=== PATIENT | male | born 1935 | race Caucasian/White ===

== ENCOUNTER → 2018-03-18 | Outpatient (CLI) | payer OTHER ==
[~2018-03-18] MED LIST: ALLO100 PO; ASPI325 PO; DIOVAN PO; EFFIENT PO; EZET10-10 PO; FAMO10 PO; HCT PO; LEVSOD75 PO; METF500C PO; NEBI5 PO; SILD50TA PO; SIMV40 PO; VALS80 PO; [UNRECOGNIZED DRUG - OTHER]
== END | disposition home or self-care (01) ==
LOC: PLD 13:49 → LAB SHORT 13:49
DX: C44.311 Basal cell carcinoma of skin of nose (principal)
CPT/HCPCS: 88305

== ENCOUNTER → 2018-08-03 | Outpatient (CLI) | payer OTHER | END | disposition home or self-care (01) | LOC: PLD 08:36 → LAB SHORT 08:36 | DX: D48.5 Neoplasm of uncertain behavior of skin (principal) | CPT/HCPCS: 88305 ==

== ENCOUNTER 2019-04-23 06:20 | Emergency (ER) | payer OTHER ==
[~2019-04-23] VITALS: Ht 175.3 cm; Wt 97.5 kg
[2019-04-23 07:02] LABS: Hematocrit 36.9 % (37.0-53.0); Hemoglobin 12.2 g/dL (13.5-17.5); Mean Corpuscular HGB 31.1 pg (26.0-34.0); Mean Corpuscular HGB Conc 33.1 g/dL (31.5-36.5); Mean Corpuscular Volume 94 fL (80-100); Mean Platelet Volume 9.7 fL (9.1-12.4); Platelet Count 102 K/mm3 (150-400); RDW Coefficient Variation 14.5 % (11.7-14.2); RDW Standard Deviation 49.8 fL (35.1-46.3); Red Blood Cell Count 3.92 M/mm3 (4.30-5.90); White Blood Cell Count 17.49 K/mm3 (4.00-11.30)
[2019-04-23 07:20] LABS: Alanine Aminotransfer (ALT/SGP 20 U/L (12-78); Albumin, Blood 3.6 g/dL (3.4-5.0); Albumin/Globulin Ratio 1.3 (0.8-1.8); Alk Phos 139 U/L (50-136); Anion Gap 9 mmol/L (6-16); Aspartate Aminotrans (AST/SGOT 13 U/L (12-37); Bilirubin, Total 0.3 mg/dL (0.1-1.0); Blood Urea Nitrogen 34 mg/dL (8-24); Bun/Creatinine Ratio 15.9 (12.0-20.0); CO2, Blood 24 mmol/L (21-32); Calcium, Blood 8.3 mg/dL (8.5-10.1); Chloride, Blood 112 mmol/L (98-108); Creatinine, Blood 2.14 mg/dL (0.60-1.20); Globulin, Blood 2.7 g/dL (2.2-4.0); Glomerular Filtration Rate 31 (60-); Glucose, Blood 122 mg/dL (70-99); Potassium, Blood 4.7 mmol/L (3.5-5.5); Sodium, Blood 145 mmol/L (136-145); Total Protein, Blood 6.3 g/dL (6.4-8.2); Troponin I <0.015 ng/mL (0.000-0.040)
[2019-04-23 07:55] LABS: BASOPHILS PERCENT MAN 0 % (0-2); EOSINOPHILS ABSOLUTE MAN 0.17 K/mm3 (0.00-0.68); EOSINOPHILS PERCENT MAN 1 % (0-6); LYMPHOCYTES ABSOLUTE MAN 14.69 K/mm3 (0.84-5.20); LYMPHOCYTES PERCENT MAN 84 % (21-46); MONOCYTES PERCENT MAN 0 % (4-13); NEUTROPHILS ABSOLUTE MAN 2.62 K/mm3 (1.96-9.15); SEG NEUTROPHILS PERCENT MAN 15 % (41-73); TOTAL CELLS COUNTED 100
[2019-04-23] MEDS ORDERED: Amaryl1 MG PO (08:01)
[2019-04-23] MEDS ORDERED: Synthroid88 MCG PO (08:01)
== END 2019-04-23 10:02 | disposition home or self-care (01) ==
LOC: ER 06:20
PROVIDERS: Emergency Medicine
DX: R07.9 Chest pain, unspecified (principal); R10.13 Epigastric pain; E11.22 Type 2 diabetes mellitus with diabetic chronic kidney disease; I12.9 Hypertensive chronic kidney disease with stage 1 through stage 4 chronic kidney disease, or unspecified chronic kidney disease; N18.9 Chronic kidney disease, unspecified; E78.00 Pure hypercholesterolemia, unspecified; M10.9 Gout, unspecified; Z88.8 Allergy status to other drugs, medicaments and biological substances; Z79.82 Long term (current) use of aspirin; Z79.899 Other long term (current) drug therapy
CPT/HCPCS: 71046; 80053; 84484; 85025; 93005; 93010; 99284-25

== ENCOUNTER 2022-08-13 15:35 | Emergency (ER) | payer OTHER ==
[~2022-08-13] VITALS: Ht 177.8 cm; Wt 88.9 kg
[~2022-08-13 15:35] MED LIST changes: +Amaryl1 MG PO; +Synthroid88 MCG PO
[2022-08-13 17:35] LABS: Source, Urine Foley catheter
[2022-08-13 17:47] LABS: Appearance, Urine Hazy (Clear); Bilirubin, Urine Neg (Neg); Blood, Urine 5+ (Neg); Color, Urine Yellow (P-Yellow); Glucose Qualitative, Urine Neg (Neg); Ketones, Urine Neg (Neg); Leukocyte Esterase, Urine 2+ (Neg); Nitrite, Urine Neg (Neg); Protein, Urine 3+ (Neg); Urobilinogen, Urine NORM (Normal)
[2022-08-13 18:02] LABS: Hyaline Casts 0-2 /lpf (0-2)
[2022-08-13 18:03] LABS: Bacteria Mod /hpf; Red Blood Cells, Urine 25-50 /hpf (0-2); Squamous Epithelial Cells Rare /hpf (Few); White Blood Cells, Urine 25-50 /hpf (0-5)
[2022-08-13] MEDS ORDERED: CEPH500 PO (18:23)
== END 2022-08-13 18:50 | disposition home or self-care (01) ==
LOC: ER 15:35
PROVIDERS: Emergency Medicine
DX: N39.0 Urinary tract infection, site not specified (principal); U07.1 COVID-19; I12.9 Hypertensive chronic kidney disease with stage 1 through stage 4 chronic kidney disease, or unspecified chronic kidney disease; E11.22 Type 2 diabetes mellitus with diabetic chronic kidney disease; N18.9 Chronic kidney disease, unspecified; I25.10 Atherosclerotic heart disease of native coronary artery without angina pectoris; E78.00 Pure hypercholesterolemia, unspecified; Z88.8 Allergy status to other drugs, medicaments and biological substances; Z79.899 Other long term (current) drug therapy
CPT/HCPCS: 51702; 81001; 99285-25; A9270

== ENCOUNTER 2022-08-14 23:07 | Inpatient (IN) | payer OTHER ==
[~2022-08-14] VITALS: Ht 177.8 cm; Wt 86.5 kg
[~2022-08-14 23:07] MED LIST changes: +CEPH500 PO
[2022-08-14 23:36] LABS: Hematocrit 34.6 % (37.0-53.0); Hemoglobin 12.7 g/dL (13.5-17.5); Mean Corpuscular HGB 33.3 pg (26.0-34.0); Mean Corpuscular HGB Conc 36.7 g/dL (31.5-36.5); Mean Corpuscular Volume 91 fL (80-100); Mean Platelet Volume 10.5 fL (9.1-12.4); Platelet Count 92 K/mm3 (150-400); RDW Coefficient Variation 11.5 % (11.7-14.2); RDW Standard Deviation 38.2 fL (35.1-46.3); Red Blood Cell Count 3.81 M/mm3 (4.30-5.90); White Blood Cell Count 8.78 K/mm3 (4.00-11.30)
[2022-08-14 23:52] LABS: Albumin, Blood 3.1 g/dL (3.4-5.0); Albumin/Globulin Ratio 1.1 (0.8-1.8); Bilirubin, Total 0.5 mg/dL (0.1-1.0); Bun/Creatinine Ratio 17.1 (12.0-20.0); Calcium, Blood 8.1 mg/dL (8.5-10.1); Creatinine, Blood 2.16 mg/dL (0.60-1.20); Globulin, Blood 2.9 g/dL (2.2-4.0); Magnesium, Blood 1.7 mg/dL (1.6-2.4)
[2022-08-14 23:56] LABS: BAND PERCENT MAN 21 % (0-8); BASOPHILS PERCENT MAN 0 % (0-2); EOSINOPHILS PERCENT MAN 0 % (0-6); LYMPHOCYTES ABSOLUTE MAN 0.96 K/mm3 (0.84-5.20); LYMPHOCYTES PERCENT MAN 11 % (21-46); MONOCYTES ABSOLUTE MAN 0.43 K/mm3 (0.16-1.47); MONOCYTES PERCENT MAN 5 % (4-13); NEUTROPHILS ABSOLUTE MAN 7.37 K/mm3 (1.96-9.15); SEG NEUTROPHILS PERCENT MAN 63 % (41-73); TOTAL CELLS COUNTED 100
[2022-08-15 00:45] LABS: Influenza A, PCR NEGATIVE (NEGATIVE); Influenza B, PCR NEGATIVE (NEGATIVE); Resp Syncytial Virus, PCR NEGATIVE (NEGATIVE)
[2022-08-15 00:52] LABS: SARS-Cov-2 (COVID-19) PCR, MMC POSITIVE (NEGATIVE)
[2022-08-15 06:14] LABS: Hematocrit 33.9 % (37.0-53.0); Hemoglobin 12.1 g/dL (13.5-17.5); Mean Corpuscular HGB 32.8 pg (26.0-34.0); Mean Corpuscular HGB Conc 35.7 g/dL (31.5-36.5); Mean Corpuscular Volume 92 fL (80-100); Mean Platelet Volume 10.3 fL (9.1-12.4); Platelet Count 82 K/mm3 (150-400); RDW Coefficient Variation 11.5 % (11.7-14.2); RDW Standard Deviation 38.6 fL (35.1-46.3); Red Blood Cell Count 3.69 M/mm3 (4.30-5.90); White Blood Cell Count 10.89 K/mm3 (4.00-11.30)
[2022-08-15 06:31] LABS: Albumin, Blood 2.9 g/dL (3.4-5.0); Bilirubin, Total 0.3 mg/dL (0.1-1.0); Bun/Creatinine Ratio 17.5 (12.0-20.0); Calcium, Blood 7.9 mg/dL (8.5-10.1); Creatinine, Blood 2.11 mg/dL (0.60-1.20); Potassium, Blood 4.1 mmol/L (3.5-5.5); Total Protein, Blood 5.9 g/dL (6.4-8.2)
[2022-08-15 06:44] LABS: BAND PERCENT MAN 16 % (0-8); BASOPHILS PERCENT MAN 0 % (0-2); EOSINOPHILS PERCENT MAN 0 % (0-6); LYMPHOCYTES ABSOLUTE MAN 0.21 K/mm3 (0.84-5.20); LYMPHOCYTES PERCENT MAN 2 % (21-46); MONOCYTES ABSOLUTE MAN 0.32 K/mm3 (0.16-1.47); MONOCYTES PERCENT MAN 3 % (4-13); NEUTROPHILS ABSOLUTE MAN 10.34 K/mm3 (1.96-9.15); SEG NEUTROPHILS PERCENT MAN 79 % (41-73); TOTAL CELLS COUNTED 100
[2022-08-15] MEDS ORDERED: OMEP20ER PO (09:13)
[2022-08-15] MEDS ORDERED: NUBEQA300 MG PO (09:16)
[2022-08-15] MEDS ORDERED: ORGOVYX120 MG PO (09:16)
[2022-08-15] MEDS ORDERED: TAMSULOSIN HCL0.4 M1 PO (09:17)
[2022-08-15] MEDS ORDERED: LOSA50 PO (09:17)
[2022-08-15] MEDS ORDERED: VITAMIN B122500 MC1 PO (09:17)
[2022-08-15] MEDS ORDERED: AMLODIPINE BESYL5 MG PO (09:18)
--- NOTE | 2022-08-15 13:15 | NUR ---
Asssumed care of patient, report recieved from Veda OLIVARES. Patient is resting comfortably in bed with eyes closed. Bed alarm on for safety. Call light in reach.
--- NOTE | 2022-08-15 17:48 | NUR ---
SUMMARY: Patient was admitted early this morning for UTI and COVID PNA. He has been alert and oriented, forgetful at times. HRR, SB in the 50s t/o the shift. LS DIM in the bases, he has a coarse PC with thick baptiste sputum, biox has been high 90s on RA. BT+, pt admits to having diarrhea at home but none here. He has a chronic luo with a leg bag-draining clear yellow urine. VSS T/O the shift. CBG AC+HS with low s/s-blood sugar has been in the 200s this afernoon. No acute changes this shift. Will report to oncoming RN.
[2022-08-16 03:54] LABS: Hematocrit 31.4 % (37.0-53.0); Hemoglobin 11.7 g/dL (13.5-17.5); Mean Corpuscular HGB 33.7 pg (26.0-34.0); Mean Corpuscular HGB Conc 37.3 g/dL (31.5-36.5); Mean Corpuscular Volume 91 fL (80-100); Mean Platelet Volume 10.4 fL (9.1-12.4); Platelet Count 97 K/mm3 (150-400); RDW Coefficient Variation 11.6 % (11.7-14.2); RDW Standard Deviation 38.1 fL (35.1-46.3); Red Blood Cell Count 3.47 M/mm3 (4.30-5.90); White Blood Cell Count 8.32 K/mm3 (4.00-11.30)
[2022-08-16 04:11] LABS: Albumin, Blood 2.8 g/dL (3.4-5.0); Anion Gap 7 mmol/L (6-16); Blood Urea Nitrogen 55 mg/dL (8-24); Bun/Creatinine Ratio 24.1 (12.0-20.0); CO2, Blood 22 mmol/L (21-32); Calcium, Blood 8.3 mg/dL (8.5-10.1); Chloride, Blood 109 mmol/L (98-108); Creatinine, Blood 2.28 mg/dL (0.60-1.20); Glomerular Filtration Rate 27 (60-); Glucose, Blood 192 mg/dL (70-99); Magnesium, Blood 1.9 mg/dL (1.6-2.4); Potassium, Blood 4.4 mmol/L (3.5-5.5); Sodium, Blood 138 mmol/L (136-145)
[2022-08-16 04:15] LABS: BAND PERCENT MAN 5 % (0-8); BASOPHILS PERCENT MAN 0 % (0-2); EOSINOPHILS PERCENT MAN 0 % (0-6); LYMPHOCYTES ABSOLUTE MAN 0.91 K/mm3 (0.84-5.20); LYMPHOCYTES PERCENT MAN 11 % (21-46); MONOCYTES ABSOLUTE MAN 0.24 K/mm3 (0.16-1.47); MONOCYTES PERCENT MAN 3 % (4-13); NEUTROPHILS ABSOLUTE MAN 7.15 K/mm3 (1.96-9.15); SEG NEUTROPHILS PERCENT MAN 81 % (41-73); TOTAL CELLS COUNTED 100
--- NOTE | 2022-08-16 06:00 | NUR ---
SHIFT SUMMARY PT ALERT AND ORIENTED X3. PLEASANT AND COOPERATIVE TO CARE. SB 40-50'S. AFEBRILE. BP STABLE. WHILE AWAKE ON RA, SATS OVER 92%. WHILE SLEEPING ON 2L NC. CHRONIC HENRY IN PLACE DRAINING YELLOW URINE. NO C/O PAIN OR DISCOMFORT. IN BED RESTING WITH CALL ALARM AT SIDE, WILL CONTINUE TO MONITOR UNTIL REPORT GIVEN TO ONCOMING RN
--- NOTE | 2022-08-16 17:57 | NUR ---
ASSUMED CARE OF PT AT 0700 THIS AM. NO ACUTE EVENTS T/O THE SHIFT, PT WORKED WITH PT/OT, THEY RECOMMEND HOME WITH HOME HEALTH AND A WALKER. PT REPORTS PT DID NOT DESATURATE WHEN UP AND WALKING, PT HAS BEEN ON RA MOST OF THE DAY, BUT WAS NOTED TO HAVE SP02 87-90% ON RA WHILE SLEEPING. PT HAS HAD NO COMPLAINTS, NO CHANGES TO PT CONDITION NOTED, SEE DOCUMENTED VS/ASSESSMENT. PT ABLE TO USE CALL LIGHT FOR NEEDS, CALL LIGHT IN REACH, WILL CONITNUE TO MONITOR AND GIVE REPORT TO NOC SHIFT RN.
--- NOTE | 2022-08-17 05:30 | NUR ---
SHIFT SUMMARY: PT. REMAINED STABLE OVERNIGHT, NSR TO SINUS SHAVON, BP STABLE AND WNL. PT.'S ONLY COMPLAINT THROUGHOUT THE NIGHT WAS A SMALL HEADACHE FOR WHICH TYLENOL WAS GIVEN. PT. RESTED WELL OVERNIGHT AND IS COMFORTABLE IN BED WITH NO COMPLAINTS AT THIS TIME.
[2022-08-17 07:39] LABS: Albumin, Blood 2.5 g/dL (3.4-5.0); Anion Gap 7 mmol/L (6-16); Blood Urea Nitrogen 62 mg/dL (8-24); Bun/Creatinine Ratio 29.1 (12.0-20.0); CO2, Blood 21 mmol/L (21-32); Calcium, Blood 7.8 mg/dL (8.5-10.1); Chloride, Blood 110 mmol/L (98-108); Creatinine, Blood 2.13 mg/dL (0.60-1.20); Glomerular Filtration Rate 29 (60-); Glucose, Blood 181 mg/dL (70-99); Phosphorus, Blood 2.9 mg/dL (2.5-4.9); Potassium, Blood 4.5 mmol/L (3.5-5.5); Sodium, Blood 138 mmol/L (136-145)
[2022-08-17] MEDS ORDERED: DEXA2 PO (10:07)
[2022-08-17] MEDS ORDERED: VISBIOME 112.51 EACH PO (10:08)
[2022-08-17] MEDS ORDERED: AZIT250 PO (10:11)
== END 2022-08-17 14:06 | disposition home or self-care (01) | DRG 871 ==
LOC: ER 23:07 → ERHOLD 08-15 02:03 → ICUW 08-15 02:03 → PCU 08-15 02:03
PROVIDERS: Family Medicine; Student in an Organized Health Care Education/Training Program; ADMIT Internal Medicine
PROC: 8E0ZXY6 Isolation (ICD-10-PCS; principal; 2022-08-15)
PROC: 3E0333Z Introduction of Anti-inflammatory into Peripheral Vein, Percutaneous Approach (ICD-10-PCS; 2022-08-15)
PROC: 3E0DX3Z Introduction of Anti-inflammatory into Mouth and Pharynx, External Approach (ICD-10-PCS; 2022-08-15)
PROC: 3E03329 Introduction of Other Anti-infective into Peripheral Vein, Percutaneous Approach (ICD-10-PCS; 2022-08-15)
DX: A41.9 Sepsis, unspecified organism (principal); J12.82 Pneumonia due to coronavirus disease 2019; J96.01 Acute respiratory failure with hypoxia; U07.1 COVID-19; N39.0 Urinary tract infection, site not specified; T83.511A Infection and inflammatory reaction due to indwelling urethral catheter, initial encounter; C91.10 Chronic lymphocytic leukemia of B-cell type not having achieved remission; N17.9 Acute kidney failure, unspecified; I25.10 Atherosclerotic heart disease of native coronary artery without angina pectoris; E78.00 Pure hypercholesterolemia, unspecified; M10.9 Gout, unspecified; I12.9 Hypertensive chronic kidney disease with stage 1 through stage 4 chronic kidney disease, or unspecified chronic kidney disease; N18.9 Chronic kidney disease, unspecified; E11.22 Type 2 diabetes mellitus with diabetic chronic kidney disease; Z85.46 Personal history of malignant neoplasm of prostate; Z95.5 Presence of coronary angioplasty implant and graft; Z88.8 Allergy status to other drugs, medicaments and biological substances; Z79.82 Long term (current) use of aspirin; Z79.84 Long term (current) use of oral hypoglycemic drugs; Z79.899 Other long term (current) drug therapy; Y84.6 Urinary catheterization as the cause of abnormal reaction of the patient, or of later complication, without mention of misadventure at the time of the procedure
CPT/HCPCS: 0241U; 36415; 71045; 80053; 80069; 82947; 83605; 83735; 84145; 85025; 87040; 93005; 93010; 94762; 96361; 96365; 96375; 97116; 97162; 97165; 99285-25; A9270; J0248; J0696; J1100; J1644; J1815; J7030; J7050

== ENCOUNTER 2022-08-20 14:10 | Emergency (ER) | payer OTHER ==
[~2022-08-20] VITALS: Ht 175.3 cm; Wt 88.5 kg
[~2022-08-20 14:10] MED LIST changes: +AMLODIPINE BESYL5 MG PO; +AZIT250 PO; +DEXA2 PO; +LOSA50 PO; +NUBEQA300 MG PO; +OMEP20ER PO; +ORGOVYX120 MG PO; +TAMSULOSIN HCL0.4 M1 PO; +VISBIOME 112.51 EACH PO; +VITAMIN B122500 MC1 PO
[2022-08-20 14:56] LABS: BASOPHILS ABSOLUTE AUTO 0.02 K/mm3 (0.00-0.23); BASOPHILS PERCENT AUTO 0 % (0-2); EOSINOPHILS ABSOLUTE AUTO 0.01 K/mm3 (0.00-0.68); EOSINOPHILS PERCENT AUTO 0 % (0-6); Hematocrit 31.9 % (37.0-53.0); Hemoglobin 11.9 g/dL (13.5-17.5); IMMATURE GRAN ABSOLUTE AUTO 0.33 K/mm3 (0.00-0.10); IMMATURE GRAN PERCENT AUTO 4 % (0-1); LYMPHOCYTES ABSOLUTE AUTO 0.48 K/mm3 (0.84-5.20); LYMPHOCYTES PERCENT AUTO 6 % (21-46); MONOCYTES ABSOLUTE AUTO 0.52 K/mm3 (0.16-1.47); MONOCYTES PERCENT AUTO 6 % (4-13); Mean Corpuscular HGB 32.9 pg (26.0-34.0); Mean Corpuscular HGB Conc 37.3 g/dL (31.5-36.5); Mean Corpuscular Volume 88 fL (80-100); Mean Platelet Volume 10.9 fL (9.1-12.4); NEUTROPHILS ABSOLUTE AUTO 6.83 K/mm3 (1.96-9.15); NEUTROPHILS PERCENT AUTO 84 % (41-73); Platelet Count 116 K/mm3 (150-400); RDW Coefficient Variation 11.5 % (11.7-14.2); Red Blood Cell Count 3.62 M/mm3 (4.30-5.90); White Blood Cell Count 8.19 K/mm3 (4.00-11.30)
[2022-08-20 15:07] LABS: Albumin, Blood 2.4 g/dL (3.4-5.0); Albumin/Globulin Ratio 0.8 (0.8-1.8); Bilirubin, Total 0.4 mg/dL (0.1-1.0); Bun/Creatinine Ratio 26.9 (12.0-20.0); Calcium, Blood 8.6 mg/dL (8.5-10.1); Creatinine, Blood 1.67 mg/dL (0.60-1.20); Globulin, Blood 3.2 g/dL (2.2-4.0); Potassium, Blood 4.1 mmol/L (3.5-5.5); Total Protein, Blood 5.6 g/dL (6.4-8.2)
== END 2022-08-20 18:04 | disposition home or self-care (01) ==
LOC: ER 14:10
PROVIDERS: Emergency Medicine
DX: U07.1 COVID-19 (principal); R09.02 Hypoxemia; I25.10 Atherosclerotic heart disease of native coronary artery without angina pectoris; I12.9 Hypertensive chronic kidney disease with stage 1 through stage 4 chronic kidney disease, or unspecified chronic kidney disease; E11.22 Type 2 diabetes mellitus with diabetic chronic kidney disease; N18.9 Chronic kidney disease, unspecified; Z88.8 Allergy status to other drugs, medicaments and biological substances; Z79.890 Hormone replacement therapy; Z79.899 Other long term (current) drug therapy; Z79.82 Long term (current) use of aspirin; Z95.5 Presence of coronary angioplasty implant and graft
CPT/HCPCS: 36415; 71045; 80053; 85025; 99285-25

== ENCOUNTER 2022-08-23 10:52 | Inpatient (IN) | payer OTHER ==
[~2022-08-23] VITALS: Ht 177.8 cm; Wt 89.0 kg
[2022-08-23 11:36] LABS: BASOPHILS ABSOLUTE AUTO 0.02 K/mm3 (0.00-0.23); BASOPHILS PERCENT AUTO 0 % (0-2); EOSINOPHILS ABSOLUTE AUTO 0.07 K/mm3 (0.00-0.68); EOSINOPHILS PERCENT AUTO 1 % (0-6); Hematocrit 36.1 % (37.0-53.0); IMMATURE GRAN ABSOLUTE AUTO 0.31 K/mm3 (0.00-0.10); IMMATURE GRAN PERCENT AUTO 3 % (0-1); LYMPHOCYTES ABSOLUTE AUTO 0.71 K/mm3 (0.84-5.20); LYMPHOCYTES PERCENT AUTO 6 % (21-46); MONOCYTES ABSOLUTE AUTO 0.53 K/mm3 (0.16-1.47); MONOCYTES PERCENT AUTO 5 % (4-13); Mean Corpuscular HGB 32.8 pg (26.0-34.0); Mean Corpuscular Volume 91 fL (80-100); Mean Platelet Volume 10.3 fL (9.1-12.4); NEUTROPHILS ABSOLUTE AUTO 10.14 K/mm3 (1.96-9.15); NEUTROPHILS PERCENT AUTO 86 % (41-73); Platelet Count 156 K/mm3 (150-400); RDW Coefficient Variation 11.6 % (11.7-14.2); RDW Standard Deviation 39.4 fL (35.1-46.3); Red Blood Cell Count 3.96 M/mm3 (4.30-5.90); White Blood Cell Count 11.78 K/mm3 (4.00-11.30)
[2022-08-23 11:53] LABS: Albumin, Blood 2.3 g/dL (3.4-5.0); Albumin/Globulin Ratio 0.6 (0.8-1.8); Bilirubin, Total 0.5 mg/dL (0.1-1.0); Bun/Creatinine Ratio 24.1 (12.0-20.0); Calcium, Blood 8.6 mg/dL (8.5-10.1); Creatinine, Blood 1.95 mg/dL (0.60-1.20); Potassium, Blood 4.7 mmol/L (3.5-5.5); Total Protein, Blood 6.3 g/dL (6.4-8.2)
[2022-08-23] MEDS ORDERED: CEPH250A PO (11:59)
[2022-08-23] MEDS ORDERED: Bystolic5 MG PO (14:17)
--- NOTE | 2022-08-23 16:45 | NUR ---
INITIAL ASSESSMENT: REPORT RECIEVED FROM ED RN, PT ARRIVED VIA GURNEY TO U 07. HE WAS ABLE TO AMBULATE TO THE BED WITH A 2 PERSON ASSIST. HE IS ALERT AND ORIENTED, HE IS UNABLE TO TELL ME THE EXACT DATE BUT KNOWS THE MONTH AND YEAR. HE DENIES PAIN AT THIS TIME. HRR, SR IN THE 70S. LS CLEAR BUT DIM IN THE BASES, BIOX 90% ON 4L VIA NC. HE HAS A COARSE NPC. THRUSH NOTED ON THE TOUNGE. BT+. PPP. HE HAS A SKIN TEAR TO THE LEFT ELBOW WITH SOME DRIED BLOOD NOTED. HE HAS A CHRONIC HENRY WITH A LEG BAG DRAINING DARK YELLOW URINE. VSS. BED ALARM ON FOR SAFETY. CALL LIGHT IN REACH.
--- NOTE | 2022-08-23 18:00 | NUR ---
UPDATE: PATIENT HAD TO GET OOB TO HAVE A BOWEL MOVEMENT. HE WAS ABLE TO AMBULATE TO THE BATHROOM WITH A FWW. WHEN HE GOT BACK TO BED HIS OXYGEN SATURATIONS WERE IN THE HIGH 70S LOW 80S, OXYGEN WAS TITRATED UP TO 8L VIA NC, WILL CONTINUE TO MONITOR.
--- NOTE | 2022-08-23 19:30 | NUR ---
SUMMARY: PATIENT WAS ADMITTED TO PCU 07 FOR COVID PNEUMONIA. HE IS ALERT AND ORIENTED CONFUSED AT TIMES. HRR, SR IN THE 70S. LS DIM IN THE BASES-HE HAS A COARSE NPC. BIOX WAS STABLE INITIALLY ON 4L VIA NC, AFTER A TRIP TO THE BATHROOM HIS OXYGEN HAD TO BE TITRATED UP TO 8L, SATURATIONS ARE IN THE HIGH 80S TO 90. BT+, PT HAD ONE EPISODE OF DIARRHEA. HE HAS A CHRONIC HENRY WITH LEG BAG DRAINING DARK YELLOW URINE. VSS. REPORT GIVEN TO SERVANDO. PATIENT IS RESTING COMFORTABLY IN BED WITH BED ALARM ON FOR SAFETY.
--- NOTE | 2022-08-23 20:50 | NUR ---
UPDATE CONTACTED DR. ANG ABOUT PT'S LS/EDEMA. SEE SHIFT ASSESSMENT FOR MORE DETAILS DR ANG ORDERED ONE TIME DOSE OF LASIX IN ATTEMPT TO REMOVE EXCESS FLUID FROM PT'S LUNGS. WILL ADMINISTER MED PER MD'S ORDERS AND WILL REASSESS LS
[2022-08-23 23:18] LABS: Source, Urine Foley catheter
[2022-08-23 23:20] LABS: Bilirubin, Urine Neg (Neg); Blood, Urine 3+ (Neg); Glucose Qualitative, Urine Neg (Neg); Ketones, Urine 1+ (Neg); Leukocyte Esterase, Urine 1+ (Neg); Nitrite, Urine Neg (Neg); Protein, Urine 2+ (Neg); Urobilinogen, Urine NORM (Normal)
[2022-08-23 23:27] LABS: Appearance, Urine Hazy (Clear); Color, Urine Pale Yellow (P-Yellow)
[2022-08-23 23:28] LABS: Amorphous Mod (0-Heavy); Bacteria Few /hpf; Red Blood Cells, Urine 0-2 /hpf (0-2); Squamous Epithelial Cells Not Seen /hpf (Few)
[2022-08-24 04:27] LABS: BASOPHILS ABSOLUTE AUTO 0.01 K/mm3 (0.00-0.23); BASOPHILS PERCENT AUTO 0 % (0-2); EOSINOPHILS PERCENT AUTO 0 % (0-6); Hematocrit 31.8 % (37.0-53.0); Hemoglobin 11.6 g/dL (13.5-17.5); IMMATURE GRAN ABSOLUTE AUTO 0.12 K/mm3 (0.00-0.10); IMMATURE GRAN PERCENT AUTO 2 % (0-1); LYMPHOCYTES ABSOLUTE AUTO 0.32 K/mm3 (0.84-5.20); LYMPHOCYTES PERCENT AUTO 5 % (21-46); MONOCYTES ABSOLUTE AUTO 0.07 K/mm3 (0.16-1.47); MONOCYTES PERCENT AUTO 1 % (4-13); Mean Corpuscular HGB Conc 36.5 g/dL (31.5-36.5); Mean Corpuscular Volume 90 fL (80-100); Mean Platelet Volume 10.3 fL (9.1-12.4); NEUTROPHILS ABSOLUTE AUTO 6.28 K/mm3 (1.96-9.15); NEUTROPHILS PERCENT AUTO 92 % (41-73); Platelet Count 113 K/mm3 (150-400); RDW Coefficient Variation 11.6 % (11.7-14.2); RDW Standard Deviation 37.8 fL (35.1-46.3); Red Blood Cell Count 3.52 M/mm3 (4.30-5.90)
[2022-08-24 04:53] LABS: Albumin, Blood 1.9 g/dL (3.4-5.0); Albumin/Globulin Ratio 0.5 (0.8-1.8); Bilirubin, Total 0.3 mg/dL (0.1-1.0); Bun/Creatinine Ratio 27.7 (12.0-20.0); Calcium, Blood 7.8 mg/dL (8.5-10.1); Creatinine, Blood 1.88 mg/dL (0.60-1.20); Globulin, Blood 3.5 g/dL (2.2-4.0); Potassium, Blood 4.3 mmol/L (3.5-5.5); Total Protein, Blood 5.4 g/dL (6.4-8.2)
--- NOTE | 2022-08-24 05:54 | NUR ---
SHIFT SUMMARY PT IS A/Ox3-4 AND FOLLOWS DIRECTIONS FROM STAFF. PT HAS MAINTAINED SPO2 >94% ON 10-15L NL WITH NO SOB OR DYSPNEA REPORTED WHILE AT REST. LS HAVE IMPROVED SINCE RECEIVING DOSE OF LASIX EARLY THIS SHIFT. PT CHRONIC HENRY WAS SWITCHED OUT FOR A NEW HENRY PER HOSPITAL PROTOCOL. HENRY PATENT AND DRAINING TO GRAVITY. STERILE FIELD MAINTAINED T/O PROCEDURE. PT'S HR HAS SLOWLY DROPPED FROM SR 70-80'S TO SB 50'S-MID 40'S. PT DOES NOT REPORT ANY CP, DIZZYNESS, WEAKNESS, OR LETHARGY. WILL CONTINUE TO MONITOR CLOSELY. DOUG, YOEL T/O MY SHIFT
--- NOTE | 2022-08-24 16:08 | NUR ---
END OF SHIFT: PATIENT HAS BEEN IMPROVING MENTATION, THIS AM WAS ABLE TO ANSWER ALL ORIENTATION QUESTIONS APPROPRIATELY, WAS ABLE TO MAKE NEEDS KNOWN HAS BEEN SLEEPING MOST OF THE DAY, IS TIRED FROM PT. PATIENT WAS UP IN THE CHAIR FOR BREAKFAST UNTIL ABOUT AN HOUR BEFORE LUNCH. PATIENT DOES HAVE DYSPNEA WITH EXERTION BUT NONE AT REST. NO CHEST PAIN OR PRESSURE AT THIS TIME. PATIENT HAS BEEN EATING WELL WITH EATING 100% OF BREAKFAST, AND 90% OF LUNCH. PATIENT BLOOD GLUCOSE HAS BEEN ELEVATED, PROVIDER AWARE, SHE PLACED NEW ORDERS. PATIENT HAS NO CONCERNS AND NEITHER DOES THIS FLAT KNITTER AT THIS TIME, WILL CONTINUE TO MONITOR UNTIL SHIFT CHANGE.
[2022-08-25 04:25] LABS: BASOPHILS ABSOLUTE AUTO 0.01 K/mm3 (0.00-0.23); BASOPHILS PERCENT AUTO 0 % (0-2); EOSINOPHILS PERCENT AUTO 0 % (0-6); Hematocrit 28.3 % (37.0-53.0); Hemoglobin 10.6 g/dL (13.5-17.5); IMMATURE GRAN ABSOLUTE AUTO 0.11 K/mm3 (0.00-0.10); IMMATURE GRAN PERCENT AUTO 1 % (0-1); LYMPHOCYTES ABSOLUTE AUTO 0.27 K/mm3 (0.84-5.20); LYMPHOCYTES PERCENT AUTO 2 % (21-46); MONOCYTES ABSOLUTE AUTO 0.34 K/mm3 (0.16-1.47); MONOCYTES PERCENT AUTO 3 % (4-13); Mean Corpuscular HGB 32.7 pg (26.0-34.0); Mean Corpuscular HGB Conc 37.5 g/dL (31.5-36.5); Mean Corpuscular Volume 87 fL (80-100); Mean Platelet Volume 10.3 fL (9.1-12.4); NEUTROPHILS ABSOLUTE AUTO 10.38 K/mm3 (1.96-9.15); NEUTROPHILS PERCENT AUTO 93 % (41-73); Platelet Count 116 K/mm3 (150-400); RDW Coefficient Variation 11.3 % (11.7-14.2); RDW Standard Deviation 36.1 fL (35.1-46.3); Red Blood Cell Count 3.24 M/mm3 (4.30-5.90); White Blood Cell Count 11.11 K/mm3 (4.00-11.30)
[2022-08-25 04:49] LABS: Albumin, Blood 1.8 g/dL (3.4-5.0); Albumin/Globulin Ratio 0.5 (0.8-1.8); Bilirubin, Total 0.3 mg/dL (0.1-1.0); Bun/Creatinine Ratio 31.2 (12.0-20.0); Calcium, Blood 8.2 mg/dL (8.5-10.1); Creatinine, Blood 2.05 mg/dL (0.60-1.20); Globulin, Blood 3.4 g/dL (2.2-4.0); Potassium, Blood 4.3 mmol/L (3.5-5.5); Total Protein, Blood 5.2 g/dL (6.4-8.2)
--- NOTE | 2022-08-25 05:22 | NUR ---
SHIFT SUMMARY PT IS A/Ox4 AND FOLLOWS DIRECTIONS FROM STAFF. PT HAS BEEN SLEEPY T/O MOST OF THE SHIFT WITH THE OCCASIONAL WAKENING IN THE NIGHT. PT HAS MAINTAINED SPO2 >92% ON 10-12 L VIA HF NC. NO SOB OR DYSPNEA NOTED AT REST. CRACKLES STILLL NOTED IN THE RLL, BUT PT APPEARS LESS FLUID OVERLOADED WITH THE ADDITION OF THE SCEDULED LASIX. PT CAN DESAT QUICKLY WHEN TALKING AND WITH SMALL BOUTS OF AMBULATION/REPOSITIONING. HR CONTINUES TO AVERAGE IN THE 50'S WHEN PT IS SLEEPING WITH NO SYMPTOMS REPORTED AT THIS TIME. BP HAS BEEN STABLE T/O THE SHIFT. HENRY PATENT AND DRAINING TO GRAVITY. VSS, NADN T/O THE SHIFT
--- NOTE | 2022-08-25 17:12 | NUR ---
END OF SHIFT: PATIENT CBG'S HAVE BEEN IMPROVING, PATIENT IS ALERT AND ORIENTED X 4. HAS BEEN VERY PLEASANT, BUT HAS SLEPT MOST OF THE DAY. DENIES CHEST PAIN/SOB, OR SOB AT REST. PATIENT HAS BEEN SELF REPOSITIONING BOTTOM, REFUSES TO MOVE FROM BED TO CHAIR, CHAIR IS TOO UNCOMFORTABLE LET PCT TO CHECK FOR RECLINERS. PATIENT ON 8-10L VIA NC AND UP TO 13L FOR EXTREME EXERTION, WITH SPO2 >88%. PATIENT HAS GREAT APPETITE, PATIENT COOPERATIVE WITH CARE, NO MAJOR CONCERNS FOR THIS PATIENT AT THIS TIME, WILL CONTINUE TO MONITOR UNTIL SHIFT CHANGE.
[2022-08-26 04:16] LABS: BASOPHILS ABSOLUTE AUTO 0.01 K/mm3 (0.00-0.23); BASOPHILS PERCENT AUTO 0 % (0-2); EOSINOPHILS PERCENT AUTO 0 % (0-6); Hematocrit 30.5 % (37.0-53.0); Hemoglobin 11.1 g/dL (13.5-17.5); IMMATURE GRAN ABSOLUTE AUTO 0.09 K/mm3 (0.00-0.10); IMMATURE GRAN PERCENT AUTO 1 % (0-1); LYMPHOCYTES ABSOLUTE AUTO 0.38 K/mm3 (0.84-5.20); LYMPHOCYTES PERCENT AUTO 3 % (21-46); MONOCYTES ABSOLUTE AUTO 0.34 K/mm3 (0.16-1.47); MONOCYTES PERCENT AUTO 3 % (4-13); Mean Corpuscular HGB 32.6 pg (26.0-34.0); Mean Corpuscular HGB Conc 36.4 g/dL (31.5-36.5); Mean Corpuscular Volume 89 fL (80-100); Mean Platelet Volume 10.1 fL (9.1-12.4); NEUTROPHILS ABSOLUTE AUTO 12.38 K/mm3 (1.96-9.15); NEUTROPHILS PERCENT AUTO 94 % (41-73); Platelet Count 121 K/mm3 (150-400); RDW Coefficient Variation 11.3 % (11.7-14.2); RDW Standard Deviation 36.5 fL (35.1-46.3); Red Blood Cell Count 3.41 M/mm3 (4.30-5.90)
[2022-08-26 04:38] LABS: Albumin, Blood 1.8 g/dL (3.4-5.0); Albumin/Globulin Ratio 0.5 (0.8-1.8); Bilirubin, Total 0.3 mg/dL (0.1-1.0); Bun/Creatinine Ratio 34.7 (12.0-20.0); Calcium, Blood 8.5 mg/dL (8.5-10.1); Creatinine, Blood 2.02 mg/dL (0.60-1.20); Globulin, Blood 3.4 g/dL (2.2-4.0); Potassium, Blood 4.6 mmol/L (3.5-5.5); Total Protein, Blood 5.2 g/dL (6.4-8.2)
--- NOTE | 2022-08-26 04:49 | NUR ---
NO ACUTE CHANGES OVERNIGHT. PATIENT REMAINED HEMODYNAMICALLY STABLE. SPO2 WNL ON RA. PATIENT RECEIVED SBX VIA MAR AND ALL OTHER SCHEDULED MEDICATIONS. PATIENT HAD FULL NIGHTS REST WITHOUT COMPLAINTS/CONCERNS.
--- NOTE | 2022-08-26 13:04 | NUR ---
ASSUMPTION OF CARE: PATIENT CURRENLTY ON 10-13L OF O2 WHICH IS AN INCREASED FROM THIS AM, HOWEVER, PATINET HAS BEEN HAVING AN INCREASE TO EXERTION, PATIENT WORKED WITH PCT TO SIT INTO RECLINER, AND PHYSICAL THERAPY. PATIENT HAS BEEN COOPERATIVE WITH CARE ALERT AND ORINETED JUST SLEEPY, DEEP BREATHING AND COUGH TECHNIQUES PROVIDED AND EDUCATION. PATIENT DENIES CHEST PAIN, SOB, BREATH SOUNDS HAVE BEEN SLIGHTLY IMPROVED FROM PREVIOUS SHIFT. PATIENT HAS NO OTHER SIGNIFICANT CHANGES OF NOTE. WILL CONTINUE TO MONITOR UNTIL SHIFT CHANGE.
--- NOTE | 2022-08-26 14:41 | NUR ---
Spiritual care visit conducted. Upon receiving referral for spiritual care, I visit pt. Pt tells me about his medical history and his current problems. He talks proudly about his family, his temple (pt attends [employer]) and his 30 some yrs at [facility]. He is kind and mindful of others and is tearful as he talks about his being at home with the Covid virus. He tells me that they were in 1953 and they still love each other deeply. Pt has a very strong lary and is easily encouraged by prayer and recitation of scripture, which I provide. Pt's dtr Donna comes in the towards the end of the visit and tells me about the loss of her spouse to covid in 2019. I provide grief support and therapeutic listening which appeared to be cathartic. I will continue to remain available to pr and family.
--- NOTE | 2022-08-26 17:54 | NUR ---
END OF SHIFT: ONLY CHANGES FROM ASSUMPTION OF CARE: DYSPNEA WITH EXERTION WAS VERY IMPROVED FROM THIS AM, PATIENT DENIES CHETST PAIN IS STILL NEEDING 9-11L OF O2 STILL ALERT AND ORIENTED, PLEASANT, WITH GREAT ORAL INTAKE. URINE OUTPUT HAS BEEN MUCH IMPROVED WITH SCHEDULED LASIX. THIS WEDGER AND GLUER HAS NO FURTHER CONCERNS OR CHANGES TO NOTE.
[2022-08-27 04:23] LABS: BASOPHILS PERCENT AUTO 0 % (0-2); EOSINOPHILS PERCENT AUTO 0 % (0-6); Hematocrit 28.9 % (37.0-53.0); Hemoglobin 10.3 g/dL (13.5-17.5); IMMATURE GRAN ABSOLUTE AUTO 0.06 K/mm3 (0.00-0.10); IMMATURE GRAN PERCENT AUTO 1 % (0-1); LYMPHOCYTES ABSOLUTE AUTO 0.27 K/mm3 (0.84-5.20); LYMPHOCYTES PERCENT AUTO 4 % (21-46); MONOCYTES ABSOLUTE AUTO 0.18 K/mm3 (0.16-1.47); MONOCYTES PERCENT AUTO 2 % (4-13); Mean Corpuscular HGB 32.1 pg (26.0-34.0); Mean Corpuscular HGB Conc 35.6 g/dL (31.5-36.5); Mean Corpuscular Volume 90 fL (80-100); Mean Platelet Volume 10.6 fL (9.1-12.4); NEUTROPHILS ABSOLUTE AUTO 7.17 K/mm3 (1.96-9.15); NEUTROPHILS PERCENT AUTO 93 % (41-73); Platelet Count 108 K/mm3 (150-400); RDW Coefficient Variation 11.5 % (11.7-14.2); RDW Standard Deviation 37.4 fL (35.1-46.3); Red Blood Cell Count 3.21 M/mm3 (4.30-5.90); White Blood Cell Count 7.68 K/mm3 (4.00-11.30)
[2022-08-27 04:59] LABS: Albumin, Blood 1.7 g/dL (3.4-5.0); Albumin/Globulin Ratio 0.5 (0.8-1.8); Bilirubin, Total 0.3 mg/dL (0.1-1.0); Bun/Creatinine Ratio 36.8 (12.0-20.0); Calcium, Blood 8.4 mg/dL (8.5-10.1); Creatinine, Blood 2.09 mg/dL (0.60-1.20); Globulin, Blood 3.2 g/dL (2.2-4.0); Potassium, Blood 4.8 mmol/L (3.5-5.5); Total Protein, Blood 4.9 g/dL (6.4-8.2)
--- NOTE | 2022-08-27 05:50 | NUR ---
SHIFT SUMMARY PT ALERT AND ORIENTED X4. FORGETFUL AT TIMES. INITIALLY ON 9-11L HIFLO NC, WITH O2 SATS OVER 92%. THIS AM PT WOULD DESAT INTO LOW 80'S WITH NC OFF AND SPO2 SATURATIONS WOULD NOT RETURN TO NORMAL LEVELS DESPITE TITRATING O2 UP TO 15L. PT PLACED ON AIRVO AND NOW AT 55L 80% FIO2. PT STATES HE IS COMFORTABLE THIS EVENING, NO C/O PAIN. IN BED ASLEEP WITH CALL ALARM AT SIDE. WILL CONTINUE TO MONITOR UNTIL REPORT GIVEN TO ONCOMING RN
--- NOTE | 2022-08-27 07:20 | NUR ---
INITIAL ASSESSMENT: PATIENT IS OOB TO THE RECLINER EATING HIS BREAKFAST. HE IS ALERT AND ORIENTED CONFUSED AT TIMES. HE DENIES PAIN AT THIS TIME. HRR, SB WITH PACS IN THE 50S, BP STABLE. LS DIM IN THE BASES WITH SOME FAINT CRACKLES, BIOX MID 90S WIHT AIRVO GOING 55L 70% FIO2. PT HAS COARSE NPC. BT+, PT DENIES TENDERNESS, HE STATES HE HAS NOT HAD A BM IN THE LAST COUPLE OF DAYS. AM MEDS GIVEN WHOLE WITH A SIP OF WATER. PATIENT DENIES OTHER NEEDS AT THIS TIME. CALL LIGHT IN REACH, WILL CONTINUE TO MONITOR.
--- NOTE | 2022-08-27 18:12 | NUR ---
END OF SHIFT: PATINET IS ALERT AND ORIENTED ASKS QUESTIONS APPROPRIATELY, USES CALL LIGHTS APPROPRIATELY. PATIENT COOPERATIVE WITH CARE: VERBAL BLOOD CONSENT PERFORMED DUE TO ISOLATION PROCAUTIONS, CHARGE WITNESSED. PATINET PULMONARY O2 DEMANDS HAVE INCREASED DESPITE AN IMPROVED CXR. SPO2 90-94% ON 50L ON 60% FIO2. BLOOD PRESSURE HAS BEEN SLIGHTLY LOWER THAN PREIVOUS DAYS WLL INFORM NIGHT RN, STILL WITHIN RANGE MAP >70. PATIENT IV IN THE RIGHT ARM FLUSHED PRIOR TO ALL FLUIDS, NO CONCERNS FROM THIS RN AT THOSE TIMES. PATIENT HAD A BED BATH WHILE ON BSC. LINEN CHANGE. HENRY STILL DRAINING TO GRAVITY AND CLEAR YELLOW. DENIES CHEST PAIN, SOB WITH EXERTION. PATIENT IN RECLINER CURRENTLY AFTER DINNER PLAN TO GET BAKCK INTO BED, PATIENT SELF REPOSITIONS. BUT ENCOURAGED WHENEVER IN ROOM.WILL CONTINUE TO MONITOR UNTIL SHIFT CHANGE.
--- NOTE | 2022-08-27 19:00 | NUR ---
Assumed care. Report received from eleonora OLIVARES. Pt resting in bed ATT. On airvo, 45 LPM, 65% Fi02. IV access in R/AC, NS TKO infusing. Alvarez catheter in place. No acute needs at time of report. Will continue to monitor.
--- NOTE | 2022-08-28 06:20 | NUR ---
Pt rested in bed throughout shift. Airvo Fi02 titrated up to 70%, current settings 45LPM/70%FiO2. Pt independent in bed, encouraged to turn frequently. No acute events overnight. VS stable. See shift assessment for further details, will continue to monitor and report off to dayshift RN.
--- NOTE | 2022-08-28 08:47 | NUR ---
NURSING PCU DAYSHIFT: Assumed care of pt at approx 0700. A/O, very pleasant, cooperative w/care. Denies any pain/discomfort at rest. Skin is pale/fragile, scattered bruising t/o, healing skin tear to R elbow, redness to coccyx reported. Repositions/xfers with assistance. Tele in place, SR w/HR 90's, no c/o CP/pressure, SBP 146 prior to a.m. meds, trace BLE edema. L/S w/crackles to mid/lower lobes, dyspnea w/minimal exertion, O2 sat upper 80's to low 90's on Airvo w/settings 45L/62% FiO2, occ moist/OPEN SOAPER TENDER cough, continuous O2 monitoring in place. Abd SNT, BT+, FC w/stat lock present and draining well. PIV x1, s/l. No s/s of acute distress this a.m. Pt sitting up in bed eating breakfast, plans to transfer to recliner after medication administration. Pt denies any current needs or questions regarding plan of care, call light in reach, awaiting rounding from PMD, cont to monitor for any changes.
--- NOTE | 2022-08-28 11:45 | NUR ---
Case Conference Note Pt sitting in recliner chair with his eyes closed on AIRVO. No S/S of distress noted at this time. Pt left undisturbed at this time. Spoke with hearing aid assistant Jasmin, reviewed plan of care and discussed case. Called and spoke with Pt's daughter Donna. Donna placed phone on speaker in order for spouse to listen to conversation. Provided update and reviewed plan of care. Engaged in therapeutic conversation regarding advanced care planning. Educated on disease process including trajectory of disease and the importance of planning for the future. Donna reports Pt does plan on seeing oncologist with plan to pursue treatment and understands treatment being Palliative. Offered active listening and answered questions. Donna expresses appreciation and reports no other concerns at this time. Palliative Care will remain available.
--- NOTE | 2022-08-28 15:45 | NUR ---
NURSING PCU DAYSHIFT SUMMARY: No significant changes noted t/o the shift. Pt continues to require Airvo 45L/65% FiO2 to maintain O2 sat of low 90's. Worked w/OT this a.m., did fairly well and was able to xfer to chair w/only minimal assist. Spent majority of shift OOB in chair, tolerating well. Family currently at bedside. Provided plan of care update, answered questions. Completed breathing exercises w/pt t/o the shift, pt able to demonstrate w/assistance. No s/s of acute distress at this time. Seen by PMD, no new d/o received. Pt denies any current needs, call light in reach. Rpt to be provided to peer RN, cont to monitor until xfer of care is completed.
--- NOTE | 2022-08-28 18:57 | NUR ---
REPORT RECEIVED FROM ARELY OLIVARES AT 1600. NO ACUTE CHANGE FOR THE REST OF THE SHIFT PT STAYED UP IN THE RECLINER UNTIL DINNER TIME. REMAINS ON AIRVO SETTINGS 40L 61% FIO2, SATS KEPT ABOVE 90%. PT ATE ABOUT 70% OF HIS DINNER INSULIN GIVEN PER COVERAGE. NO OTHER ISSUES OR COMPLAINS AT THIS TIME. PT ABLE TO MAKE NEEDS KNOWN, CALL LIGHTS IN REACH WILL REPORT TO ONCOMING SHIFT
[2022-08-29 04:38] LABS: BASOPHILS ABSOLUTE AUTO 0.01 K/mm3 (0.00-0.23); BASOPHILS PERCENT AUTO 0 % (0-2); EOSINOPHILS PERCENT AUTO 0 % (0-6); Hematocrit 27.2 % (37.0-53.0); Hemoglobin 9.6 g/dL (13.5-17.5); IMMATURE GRAN ABSOLUTE AUTO 0.02 K/mm3 (0.00-0.10); IMMATURE GRAN PERCENT AUTO 0 % (0-1); LYMPHOCYTES ABSOLUTE AUTO 0.21 K/mm3 (0.84-5.20); LYMPHOCYTES PERCENT AUTO 3 % (21-46); MONOCYTES ABSOLUTE AUTO 0.12 K/mm3 (0.16-1.47); MONOCYTES PERCENT AUTO 2 % (4-13); Mean Corpuscular HGB 31.6 pg (26.0-34.0); Mean Corpuscular HGB Conc 35.3 g/dL (31.5-36.5); Mean Corpuscular Volume 90 fL (80-100); Mean Platelet Volume 10.7 fL (9.1-12.4); NEUTROPHILS ABSOLUTE AUTO 5.81 K/mm3 (1.96-9.15); NEUTROPHILS PERCENT AUTO 94 % (41-73); Platelet Count 103 K/mm3 (150-400); RDW Coefficient Variation 11.2 % (11.7-14.2); RDW Standard Deviation 36.8 fL (35.1-46.3); Red Blood Cell Count 3.04 M/mm3 (4.30-5.90); White Blood Cell Count 6.17 K/mm3 (4.00-11.30)
[2022-08-29 04:57] LABS: Albumin, Blood 1.9 g/dL (3.4-5.0); Albumin/Globulin Ratio 0.6 (0.8-1.8); Bilirubin, Total 0.4 mg/dL (0.1-1.0); Bun/Creatinine Ratio 44.8 (12.0-20.0); Calcium, Blood 8.5 mg/dL (8.5-10.1); Creatinine, Blood 2.1 mg/dL (0.60-1.20); Potassium, Blood 4.8 mmol/L (3.5-5.5); Total Protein, Blood 4.9 g/dL (6.4-8.2)
--- NOTE | 2022-08-29 06:20 | NUR ---
SHIFT SUMMARY: MAINTAINED O2 SATS >92% ON AIRVO 45L/80%, OTHER VS WNL. A&O X4. MEDICATED PER EMAR. PLEASANT AND COOPERATIVE WITH CARE. HENRY DRAINING TO GRAVITY. PATIENT SLEPT WELL T/O NIGHT. NO ADVERSE EVENTS THIS SHIFT. BED LOW WITH CALL LIGHT IN PLACE. WILL CONTINUE TO MONITOR UNTIL REPORT TO DAY RN.
--- NOTE | 2022-08-29 16:48 | NUR ---
PT AOX4 AND COOPERATIVE OF CARE. PT DOING WELL,BUT STILL DESATs IF HE HAS TO MOVE MUCH IN BED. PT HAS IMPROVED AND THE AIRVO SETTING IS NOW 45L64% AND MAINTIANING MID 90s% O2. PT VERY PLEASANT NO DISTESS NOTED AND COOPERATIVE OF CARE. CALL LIGHT WITHIN REACH WILL CONTNIUE TO MONITOR.
[2022-08-30 04:21] LABS: BASOPHILS PERCENT AUTO 0 % (0-2); EOSINOPHILS PERCENT AUTO 0 % (0-6); Hematocrit 24.7 % (37.0-53.0); Hemoglobin 9.2 g/dL (13.5-17.5); IMMATURE GRAN ABSOLUTE AUTO 0.02 K/mm3 (0.00-0.10); IMMATURE GRAN PERCENT AUTO 0 % (0-1); LYMPHOCYTES ABSOLUTE AUTO 0.22 K/mm3 (0.84-5.20); LYMPHOCYTES PERCENT AUTO 4 % (21-46); MONOCYTES ABSOLUTE AUTO 0.11 K/mm3 (0.16-1.47); MONOCYTES PERCENT AUTO 2 % (4-13); Mean Corpuscular HGB 32.9 pg (26.0-34.0); Mean Corpuscular HGB Conc 37.2 g/dL (31.5-36.5); Mean Corpuscular Volume 88 fL (80-100); NEUTROPHILS PERCENT AUTO 93 % (41-73); Platelet Count 99 K/mm3 (150-400); RDW Standard Deviation 35.7 fL (35.1-46.3); White Blood Cell Count 5.25 K/mm3 (4.00-11.30)
[2022-08-30 04:57] LABS: Albumin, Blood 1.8 g/dL (3.4-5.0); Albumin/Globulin Ratio 0.6 (0.8-1.8); Bilirubin, Total 0.4 mg/dL (0.1-1.0); Bun/Creatinine Ratio 42.5 (12.0-20.0); Calcium, Blood 8.2 mg/dL (8.5-10.1); Creatinine, Blood 2.47 mg/dL (0.60-1.20); Globulin, Blood 2.9 g/dL (2.2-4.0); Potassium, Blood 4.9 mmol/L (3.5-5.5); Total Protein, Blood 4.7 g/dL (6.4-8.2)
--- NOTE | 2022-08-30 05:09 | NUR ---
SHIFT SUMMARY PT IS A&OX4, FOLLOWS COMMANDS, HAS BEEN SB 40'S-50'S ON TELE, IS A 1P SBA W/ FWW TO BSC, AND IS A Q2 TURN. PT HAS BEEN ON AIRVO 45L/65% ALL NIGHT AND HAS DESATURATED TO THE HIGH 70'S W/ ACTIVITY. HE HAS BEEN COACHED W/ DEEP BREATHING AND HAS BEEN POSITIONED IN SEMI PRONE POSITIONS TONIGHT TO MAINTIAN SP02 >90%. HE HAS HAD NO ACUTE EVENTS AND HAS BEEN RESTING T/O THE NIGHT. HE C/O A HEADACHE AND WAS MEDICATED PER EMAR, AND THE PAIN HAS RESOLVED. WILL CONTINUE TO MONITOR UNTIL SHIFT REPORT IS GIVEN TO THE ONCOMING SHIFT RN. SEE NOTES FOR ANY UPDATES.
--- NOTE | 2022-08-30 17:51 | NUR ---
ASSUMED CARE OF PT AT 0700. PT OOB TO CHAIR FOR MEALS T/O THE DAY. RT AT BEDSIDE FOR TREATMENTS AND WEANING DOWN OX NEEDS. PT WORKED WITH PT/OT.PT ENCOURAGED TO TURN AND REPOSITION FREQUENTLY, COUGH AND DEEP BREATH. PT'S DTR CHELSI UPDATED VIA PHONE CALL ON PT'S CONDITION. PT ABLE TO USE CALL LIGHT FOR NEEDS, CALL LIGHT IN REACH. NO ACUTE EVENTS T/O THE SHIFT. WILL CONTINUE TO MONITOR AND GIVE REPORT TO NOC SHIFT RN.
--- NOTE | 2022-08-31 01:04 | NUR ---
DESATURATION IN THE NIGHT WHEN GOING IN THE PT'S ROOM TO ASSESS HIM AND GET HIS VS HIS 02 WAS SATURATING ABOUT 84-89% ON AIRVO 45L/57% HE WAS NOT MOVING AROUND OR TALKING WHICH USALLY CAUSES HIM TO DESTURATE. HE WAS COACHED THROUGH DEEP BREATHING AND SAT UP IN THE BED. HE STILL COULD NOT MAINTIAN HIS O2 AT/OVER 90%. AFTER A FEW MINUTES RT WAS CALLED AND WE DETERMINED THE PT NEEDED TO BE PRONED. ADDITIONAL HELP WAS OBTAINED AND THE PT WAS PLACED IN A PRONED POSTITION. DURING THE EVENT HE RANGED FROM 74%-89% IN SATURATION. HE IS CURRENTLY ON 45L/44% AND SP02 IS RANGING FROM 89-96% HE IS ASLEEP IN A PRONED POSITIONED AND TOLERATING IT WELL. CALL LIGHT IN REACH, BED IN LOW, THREE SIDE RAILS UP. SEE NOTES FOR ANY UPDATES. WILL CONTINUE TO MONITOR UNTIL REPORT IS GIVEN TO THE ONCOMING SHIFT RN.
--- NOTE | 2022-08-31 04:54 | NUR ---
PT DESATURATED MONITOR ALARMED PT WAS DESATURATING TO 80% AND WHEN GOING TO ASSESS THE PT HE WAS NOT ABLE TO RECOVER W/ DEEP BREATHING AND REPOSITIONING TO HIGH FOWLERS SO HIS AIRVO WAS TURNED UP TO 45L/64%. HE NOW SATURATING 95%. SEE NOTES FOR ANY UPDATES.
--- NOTE | 2022-08-31 06:27 | NUR ---
SHIFT SUMMARY PT IS A&OX4, SBA TO THE [facility], SITTING SB/SR 50-60'S ON TELE, CURRENTLY ON AIRVO 45L/64% W/ SP02 89-94%, AND WAS PRONED MOST OF THE NIGHT. PT HAS BEEN DESATURATING WITH ACTIVITY AND HAD A FEW EPISODES OF DESATURATING WHEN RESTING. SEE PREVIOUS NOTES FOR MORE INFORMATION. HE HAS NOT COMPLAINED OF ANY ANGINA, SOB, PAIN, OR DIZZINESS. HE IS VERY PLEASENT AND HAS BEEN RESTING MOST OF THE NIGHT . WILL CONTINUE TO MONITOR UNTIL SHIFT REPORT IS GIVEN TO THE ONCOMING SHIFT RN, SEE NOTES FOR ANY UPDATES.
[2022-08-31 06:47] LABS: BASOPHILS PERCENT AUTO 0 % (0-2); EOSINOPHILS PERCENT AUTO 0 % (0-6); Hemoglobin 8.8 g/dL (13.5-17.5); IMMATURE GRAN ABSOLUTE AUTO 0.05 K/mm3 (0.00-0.10); IMMATURE GRAN PERCENT AUTO 1 % (0-1); LYMPHOCYTES ABSOLUTE AUTO 0.32 K/mm3 (0.84-5.20); LYMPHOCYTES PERCENT AUTO 3 % (21-46); MONOCYTES ABSOLUTE AUTO 0.15 K/mm3 (0.16-1.47); MONOCYTES PERCENT AUTO 2 % (4-13); Mean Corpuscular HGB 31.7 pg (26.0-34.0); Mean Corpuscular HGB Conc 35.2 g/dL (31.5-36.5); Mean Corpuscular Volume 90 fL (80-100); Mean Platelet Volume 10.6 fL (9.1-12.4); NEUTROPHILS ABSOLUTE AUTO 8.88 K/mm3 (1.96-9.15); NEUTROPHILS PERCENT AUTO 95 % (41-73); Platelet Count 111 K/mm3 (150-400); RDW Coefficient Variation 11.3 % (11.7-14.2); RDW Standard Deviation 37.2 fL (35.1-46.3); Red Blood Cell Count 2.78 M/mm3 (4.30-5.90)
[2022-08-31 07:08] LABS: Albumin, Blood 1.8 g/dL (3.4-5.0); Albumin/Globulin Ratio 0.7 (0.8-1.8); Bilirubin, Total 0.3 mg/dL (0.1-1.0); Bun/Creatinine Ratio 45.5 (12.0-20.0); Calcium, Blood 8.4 mg/dL (8.5-10.1); Creatinine, Blood 2.79 mg/dL (0.60-1.20); Globulin, Blood 2.7 g/dL (2.2-4.0); Potassium, Blood 5.3 mmol/L (3.5-5.5); Total Protein, Blood 4.5 g/dL (6.4-8.2)
--- NOTE | 2022-08-31 14:17 | NUR ---
PT C/O NAUSEA. DR AGUSTIN NOTIFIED AND ORDERS RECEIVED FOR ZOFRAN PRN.
--- NOTE | 2022-08-31 18:13 | NUR ---
PT APPEARS MORE FATIGUED TODAY. UP TO CHAIR FOR BREAKFAST AND LUNCH, DECLINED TO GET OOB FOR DINNER. PT TURNED FAR HE WOULD TOLERATE FROM SIDE TO SIDE, DECLINED TO PRONE TODAY. FAMILY IN TO VISIT. PT STATES HE DOES NOT WANT TO HAVE TO GO TO [facility] FOR [facility]. PT ENCOURAGED TO COUGH DEEP BREATHE AND PARTICIPATE IN PULM TOILET. RN EXPLAINED THE IMPORTANCE OF PRONING AND IMPROVING OXYGENATION. PT MEDICATED FOR NAUSEA X 1. NO OTHER CHANGES IN PT CONDITION THIS SHIFT. PT ABLE TO USE CALL LIGHT FOR NEEDS, CALL LIGHT IN REACH, WILL CONTINUE TO MONITOR AND GIVE REPORT TO NOC SHIFT RN.
--- NOTE | 2022-09-01 03:16 | NUR ---
PT DESATURATED IN HIS SLEEP PT WAS SLEEPING AND HIS SPO2 DROPPED TO THE 70'S. HE WAS COACHED IN DEEP BREATHING, AND WAS NOT ABLE TO RECOVER. RT CALLED AND INCREASED THE AIRVO SETTINGS TO 60/70%. PT'S SPO02 IS SUSTAINING AT 93% NOW IN A LOW FOWLERS POSITION. PT DENIED SOB AND DYSPNEA THROUGH THE EVENT. WILL CONTINUE TO MONITOR UNTIL SHIFT REPORT IS GIVEN TO THE ONCOMING SHIFT RN.
[2022-09-01 04:20] LABS: BASOPHILS PERCENT AUTO 0 % (0-2); EOSINOPHILS PERCENT AUTO 0 % (0-6); Hematocrit 20.4 % (37.0-53.0); Hemoglobin 7.1 g/dL (13.5-17.5); IMMATURE GRAN ABSOLUTE AUTO 0.06 K/mm3 (0.00-0.10); IMMATURE GRAN PERCENT AUTO 1 % (0-1); LYMPHOCYTES ABSOLUTE AUTO 0.22 K/mm3 (0.84-5.20); LYMPHOCYTES PERCENT AUTO 3 % (21-46); MONOCYTES ABSOLUTE AUTO 0.09 K/mm3 (0.16-1.47); MONOCYTES PERCENT AUTO 1 % (4-13); Mean Corpuscular HGB 31.8 pg (26.0-34.0); Mean Corpuscular HGB Conc 34.8 g/dL (31.5-36.5); Mean Corpuscular Volume 92 fL (80-100); Mean Platelet Volume 10.9 fL (9.1-12.4); NEUTROPHILS PERCENT AUTO 94 % (41-73); Platelet Count 93 K/mm3 (150-400); RDW Coefficient Variation 11.5 % (11.7-14.2); RDW Standard Deviation 38.7 fL (35.1-46.3); Red Blood Cell Count 2.23 M/mm3 (4.30-5.90); White Blood Cell Count 6.57 K/mm3 (4.00-11.30)
[2022-09-01 04:57] LABS: Albumin/Globulin Ratio 0.9 (0.8-1.8); Bilirubin, Total 0.4 mg/dL (0.1-1.0); Bun/Creatinine Ratio 49.2 (12.0-20.0); Calcium, Blood 8.3 mg/dL (8.5-10.1); Creatinine, Blood 3.13 mg/dL (0.60-1.20); Globulin, Blood 2.2 g/dL (2.2-4.0); Total Protein, Blood 4.2 g/dL (6.4-8.2)
--- NOTE | 2022-09-01 06:06 | NUR ---
SHIFT SUMMARY PT IS A&OX4, HAS A CHRONIC HENRY DRAINING TO GRAVITY W/ LIGHT COLA COLORED URINE, HAS INCREASED 02 NEEDS AND IS ON THE AIRVO 60L/71%, IS CURRENTLY SITTING HIGH FOWLERS W/ SPO2 @ 99%, HAS BEEN SB 50'S-60'S, AND IS W/O ANGINA, SOB, NAUSEA, DYSPNEA. PT WAS PRONED MOST OF THE NIGHT AND TURNED HIMSELF ONTO HIS SIDE IN BED. HE HAD ONE EPISODE OF DESATURATING AND SUSTAINING, SEE PREVIOUS NOTE FOR MORE INFORMATION. HIS MORNING LABS CAME BACK AND HIS KIDNEY FUNCTION IS WORSENING AND K WAS 6.0. DR. SANTANA CALLED AND TALI WAS ORDERED, REPEAT K LAB AT 0630, AND HE D/C'D THE LASIX. WILL CONTINUE TO MONITOR UNTIL SHIFT REPORT IS GIVEN TO THE ONCOMING SHIFT RN. SEE NOTES FOR ANY UPDATES.
--- NOTE | 2022-09-01 10:15 | NUR ---
DR GAYLE NOTIFIED OF NEPHRO CONSULT, NEW ORDERS RECEIVED AT THIS TIME.
[2022-09-01 13:09] LABS: Source, Urine Foley catheter
[2022-09-01 13:15] LABS: Appearance, Urine Clear (Clear); Bilirubin, Urine Neg (Neg); Blood, Urine 4+ (Neg); Color, Urine Yellow (P-Yellow); Glucose Qualitative, Urine Neg (Neg); Ketones, Urine Neg (Neg); Leukocyte Esterase, Urine Neg (Neg); Nitrite, Urine Neg (Neg); Protein, Urine 2+ (Neg); Urobilinogen, Urine NORM (Normal)
[2022-09-01 13:38] LABS: Amorphous Light (0-Heavy); Uric Acid Crystals Rare /hpf; Yeast/Fungi Urine Many /hpf
[2022-09-01 13:39] LABS: Bacteria Mod /hpf; Squamous Epithelial Cells Rare /hpf (Few)
--- NOTE | 2022-09-01 13:42 | NUR ---
ASSUMED CARE OF PT. AM LABS NOTED BY THIS RN. DR AGUSTIN NOTIFIED OF DROP IN HEMOGLOBIN FROM 8.8 YESTERDAY TO 7.1 TODAY, CREATININE INCREASED TO 3.3 FROM 1.95 AT ADMISSION, POTASSIUM 6.0 AND DARK COLORED URINE NOTED. PT IS AWAKE AND ALERT, NO C/O PAIN AT THIS TIME. ORDERS RECEIVED.
[2022-09-01 14:31] LABS: Anion Gap 11 mmol/L (6-16); Blood Urea Nitrogen 101 mg/dL (8-24); Bun/Creatinine Ratio 49.3 (12.0-20.0); CO2, Blood 24 mmol/L (21-32); Calcium, Blood 8.6 mg/dL (8.5-10.1); Chloride, Blood 99 mmol/L (98-108); Creatinine, Blood 2.05 mg/dL (0.60-1.20); Glomerular Filtration Rate 31 (60-); Glucose, Blood 188 mg/dL (70-99); Phosphorus, Blood 2.9 mg/dL (2.5-4.9); Sodium, Blood 134 mmol/L (136-145)
[2022-09-01 14:32] LABS: Potassium, Blood 3.9 mmol/L (3.5-5.5)
--- NOTE | 2022-09-01 14:33 | NUR ---
DR PALM PLACED R GROIN HD CATHETER W/O COMPLICATIONS NOTED AT THIS TIME. HD IS BEING DONE IN THE ROOM. PT SPO2 NOTED TO BE DROPPING INTO THE UPPER 70s TO LOWER 80s ON AIRVO @ 60L/88%. RT NOTIFIED. PT IS WILLING TO TRY NON-INVASIVE PPV AT THIS TIME, PT'S FAMILY AT BEDSIDE. HD CONTINUES AT THIS TIME. LABS NOTED TO HAVE IMPROVED FROM THIS AM. CALL LIGHT IN REACH, WILL CONTINUE TO MONITOR.
[2022-09-01 14:50] LABS: Eosinophils-Raw #,Urine 1
--- NOTE | 2022-09-01 14:58 | NUR ---
DR AGUSTIN UPDATED ON PT'S NEW NEED FOR CPAP, PRESSURE 12 @ 100% O2. NEW LAB RESULTS NOTED. NO NEW ORDERS AT THIS TIME.
--- NOTE | 2022-09-01 18:20 | NUR ---
SEE PREVIOUS NOTES FROM TODAY'S SHIFT. PT RESTING QUIETLY IN BED ON CPAP . R GROIN TRICATH WITH SOME OOZING NOTED UNDER DRESSING, PEDAL PULSES PALP, R LEG P/W/D. PT NPO FOR DINNER TONIGHT, UNABLE TO TOLERATE BEING OFF CPAP EARLIER THIS EVENING. PT'S FAMILY IS UP TO DATE ON PT'S CONDITION AND HAVE LEFT THIER PHONE NUMBERS TO BE CONTACTED WITH ANY CHANGES OVERNIGHT. PT IS ABLE TO USE CALL LIGHT, CALL LIGHT IN REACH, WILL CONTINUE TO MONITOR AND GIVE REPORT TO NOC ALBINO RN.
--- NOTE | 2022-09-01 23:32 | NUR ---
HD PORT SITE. AT 1940 I WENT INTO THE PT'S ROOM TO ASSESS HIM AND LOOKED AT HIS GROIN SITE AND SAW THAT THERE WAS BLOOD OOZING FROM THE CHG TEG DRESSING. CHARGE NURSE WAS CALLED AND PRESSURE WAS APPLIED WHILE THE CHARGE CALLED THE DR. GAYLE. DR. GAYLE WAS SENT A PICTURE AND WANTED TO CONTINUE TO MONITOR. THE DRESSING IS INTACT. GAUZE WAS PLACED OVER THE DRESSING ON THE RIGHT GROIN SITE TO MONITOR THE AMOUNT OF BLEEDING. SEE NOTES FOR ANY UPDATS.
--- NOTE | 2022-09-02 00:33 | NUR ---
HOLD LOVENOX AND ASPIRIN PER DR. BARRERA DUE TO GROIN SITE OZZING.
[2022-09-02 02:03] LABS: BASOPHILS ABSOLUTE AUTO 0.02 K/mm3 (0.00-0.23); BASOPHILS PERCENT AUTO 0 % (0-2); EOSINOPHILS PERCENT AUTO 0 % (0-6); Hemoglobin 6.6 g/dL (13.5-17.5); IMMATURE GRAN ABSOLUTE AUTO 0.12 K/mm3 (0.00-0.10); IMMATURE GRAN PERCENT AUTO 1 % (0-1); LYMPHOCYTES ABSOLUTE AUTO 0.68 K/mm3 (0.84-5.20); LYMPHOCYTES PERCENT AUTO 5 % (21-46); MONOCYTES ABSOLUTE AUTO 0.18 K/mm3 (0.16-1.47); MONOCYTES PERCENT AUTO 1 % (4-13); Mean Corpuscular HGB Conc 36.7 g/dL (31.5-36.5); Mean Corpuscular Volume 90 fL (80-100); Mean Platelet Volume 10.8 fL (9.1-12.4); NEUTROPHILS ABSOLUTE AUTO 11.95 K/mm3 (1.96-9.15); NEUTROPHILS PERCENT AUTO 92 % (41-73); Platelet Count 135 K/mm3 (150-400); RDW Coefficient Variation 11.7 % (11.7-14.2); RDW Standard Deviation 37.8 fL (35.1-46.3); White Blood Cell Count 12.95 K/mm3 (4.00-11.30)
[2022-09-02 02:23] LABS: Bun/Creatinine Ratio 44.2 (12.0-20.0); Calcium, Blood 8.6 mg/dL (8.5-10.1); Creatinine, Blood 3.12 mg/dL (0.60-1.20); Potassium, Blood 5.1 mmol/L (3.5-5.5)
--- NOTE | 2022-09-02 11:25 | NUR ---
ASSUMPTION OF CARE: PATIENT THROUGH THE NIGHT HAD INCREASED TROP, INCREASED OXYGEN DEMAND, NEEDED CPAP AT MAX SETTINGS, CENTRAL LINE FOR DIALYSIS, CONTINUE TO SEEP THROUGH THE NIGHT. PATIENT HAS BEEN, SWITCHED TO COMFORT CARE ABOUT AN HOUR PRIOR TO ASSUMPTION OF CARE. PATIENT CURRENLTY RESTING PEACFULLY, FAMILY PRESENT AT BEDSIDE, CURRENLTY NO CONCERNS FROM FAMILY PATIENT HAS BEEN MEDCIATED FOR DYSPNEA AND PAIN PER MAR, PATIENT HAS NO OXYGEN, PATIENT BREATHIGN IS STARTING TO INCREASE IN DEPTH AND PROLONG IN DURATION BETWEEN BREATHING. PATIENT WILL BE MEDICATED AT FIRST CHANCE FOR DYSPNEA. FAMILY EDUCATED ABOUT END OF LIFE PROCESS, CURRENT SITUATION, AND MEDCIATION GIVEN. NO CONCERNS OR QUESTIONS FROM FAMILY OR THIS RN AT THIS GIVEN TIME WILL CONTINUE TO ASSESS AND MONITOR.
--- NOTE | 2022-09-02 11:37 | NUR ---
END OF SHIFT: PATIENT NICO HAS PASSED AT APRROXIMATELY 0951, PROVIDER AND HAND SPRING REPAIRER HELPER CONFIRMED AND AWARE [place] AT BEDSIDE, ALONG WITH PROVIDER. FAMILY INFORMED RADHA OF SERVICES. PROVIDED EMOTIONAL SUPPORT NO CONCERNS AT THIS TIME. SERVICES AWARE AND WILL ELEMENTARY SECRETARY AT FIRST OPPURTUNITY.
--- NOTE | 2022-09-02 11:46 | NUR ---
Spiritual care visit conducted. Pt is taking his last couple of breaths while I enter pt's rm. Family is present and grieving appropriately. Doctor confirms his . I conduct a life review, offer grief support, and provide prayer and theological insights. Family responds well and show signs of being comforted. I then learn that pt's spouse, who elected to not be in the rm when he expires, is in the ICU waiting rm. I go and provide a calming presence, grief support and prayer for spouse, Zakia and the family that are gathered around her for support. Zakia voices much appreciation for the spiritual care.
[2022-09-06 06:10] LABS: CK-BB 18 % (0); CK-MB 0 % (0-3); CK-MM 82 % (97-100); MACRO TYPE 1 0 % (Not Observed); MACRO TYPE 2 0 % (Not Observed)
== END 2022-09-02 12:02 | DRG 871 ==
LOC: ER 10:52 → PCU 14:41
PROVIDERS: Emergency Medicine; Internal Medicine; Internal Medicine Nephrology; ADMIT Family Medicine
PROC: 8E0ZXY6 Isolation (ICD-10-PCS; principal; 2022-08-23)
PROC: 3E03329 Introduction of Other Anti-infective into Peripheral Vein, Percutaneous Approach (ICD-10-PCS; 2022-08-23)
PROC: 5A0955A Assistance with Respiratory Ventilation, Greater than 96 Consecutive Hours, High Flow/Velocity Cannula (ICD-10-PCS; 2022-08-24)
PROC: XW0DXM6 Introduction of Baricitinib into Mouth and Pharynx, External Approach, New Technology Group 6 (ICD-10-PCS; 2022-08-27)
PROC: 5A1D70Z Performance of Urinary Filtration, Intermittent, Less than 6 Hours Per Day (ICD-10-PCS; 2022-09-01)
PROC: 0WHG33Z Insertion of Infusion Device into Peritoneal Cavity, Percutaneous Approach (ICD-10-PCS; 2022-09-01)
PROC: 5A09357 Assistance with Respiratory Ventilation, Less than 24 Consecutive Hours, Continuous Positive Airway Pressure (ICD-10-PCS; 2022-09-01)
DX: A41.89 Other specified sepsis (principal); J12.82 Pneumonia due to coronavirus disease 2019; U07.1 COVID-19; J96.21 Acute and chronic respiratory failure with hypoxia; N17.9 Acute kidney failure, unspecified; C91.11 Chronic lymphocytic leukemia of B-cell type in remission; C79.51 Secondary malignant neoplasm of bone; E87.20 Acidosis, unspecified; G93.1 Anoxic brain damage, not elsewhere classified; E11.22 Type 2 diabetes mellitus with diabetic chronic kidney disease; Z66 Do not resuscitate; Z51.5 Encounter for palliative care; I25.10 Atherosclerotic heart disease of native coronary artery without angina pectoris; E03.9 Hypothyroidism, unspecified; C61 Malignant neoplasm of prostate; C44.601 Unspecified malignant neoplasm of skin of unspecified upper limb, including shoulder; C67.9 Malignant neoplasm of bladder, unspecified; W18.30XA Fall on same level, unspecified, initial encounter; E87.5 Hyperkalemia; I12.9 Hypertensive chronic kidney disease with stage 1 through stage 4 chronic kidney disease, or unspecified chronic kidney disease; E78.00 Pure hypercholesterolemia, unspecified; M10.9 Gout, unspecified; N18.32 Chronic kidney disease, stage 3b; D69.6 Thrombocytopenia, unspecified; Z79.02 Long term (current) use of antithrombotics/antiplatelets; Z88.8 Allergy status to other drugs, medicaments and biological substances; Z79.899 Other long term (current) drug therapy; Z79.82 Long term (current) use of aspirin; Z95.5 Presence of coronary angioplasty implant and graft; Z79.2 Long term (current) use of antibiotics; Z79.4 Long term (current) use of insulin; Z87.891 Personal history of nicotine dependence; Z92.3 Personal history of irradiation; Z92.21 Personal history of antineoplastic chemotherapy; Z98.890 Other specified postprocedural states
CPT/HCPCS: 36415; 36416; 36556; 71045; 76770; 80048; 80053; 80069; 81001; 82436; 82947; 83880; 84132; 84145; 84156; 84484; 84540; 85025; 85379; 87040; 87081; 87086; 87106; 87205; 87449; 93005; 93010; 94640; 94660; 94664; 94760; 94762; 96374; 97110; 97162; 97166; 97530; 99285-25; A9270; C1752; C9399; J0610; J0692; J1650; J1815; J1940; J2060; J2270; J2405; J2920; J2930; J7050; P9047